=== PATIENT | female | born 1985 | race Two or more races ===

== ENCOUNTER 2022-03-11 12:55 | Emergency (ER) | payer MEDICAID, OTHER ==
[~2022-03-11] VITALS: Ht 162.6 cm; Wt 68.0 kg
[2022-03-11 15:00] LABS: BASOPHILS % (AUTO) 0.3 % (0.0-2.0); EOSINOPHILS % (AUTO) 0.4 % (0.0-6.0); HEMATOCRIT 38 % (33-45); HEMOGLOBIN 12.3 g/dL (11.5-14.8); LYMPHOCYTES # (AUTO) 1.4 K/uL (0.8-4.8); LYMPHOCYTES % (AUTO) 14.3 % (20.0-44.0); MEAN CORPUSCULAR HGB CONC 33 g/dl (31.0-36.0); MEAN CORPUSCULAR VOLUME 85 fL (82-100); MONOCYTES # (AUTO) 0.7 K/uL (0.1-1.30); MONOCYTES % (AUTO) 7.4 % (2.0-12.0); NEUTROPHILS # (AUTO) 7.6 K/uL (1.8-8.9); NEUTROPHILS % (AUTO) 77.6 % (43.0-81.0); PLATELET COUNT (AUTO) 241 K/uL (150-450); RED BLOOD CELL COUNT(AUTO) 4.44 MIL/uL (4.0-5.2); WHITE BLOOD COUNT (AUTO) 9.8 K/uL (4.3-11.0)
[2022-03-11] MEDS ORDERED: VANCOMYCIN 1 GM in IV D5W 250 ML IV ONE (15:00)
[2022-03-11] MEDS ORDERED: CEFAZOLIN 1 GM in IV D5W 50 ML IV ONE (15:00)
--- NOTE | 2022-03-11 15:20 | NUR ---
C/O SWELLING (CELLULITIS) OF THE RIGHT FOOT
--- NOTE | 2022-03-11 15:30 | NUR ---
ESTABLISHED IV LINE RIGHT AC 20G BLOOD SAMPLE OBTAINED BY TECH SENT TO LAB
[2022-03-11 15:31] LABS: ALBUMIN 3.5 g/dL (3.4-5.0); BILIRUBIN,DIRECT 0.1 mg/dL (0.0-0.2); BILIRUBIN,TOTAL 0.4 mg/dL (0.2-1.0); CALCIUM, SERUM 8.8 mg/dL (8.5-10.1); CREATININE 0.9 mg/dL (0.6-1.3); POTASSIUM 4.2 mmol/L (3.5-5.1); TOTAL PROTEIN, SERUM 7.1 g/dL (6.4-8.2)
--- NOTE | 2022-03-11 15:32 | NUR ---
PANEL ON-CALL PAGED
--- NOTE | 2022-03-11 16:43 | NUR ---
OCTAVIO RECINOS OF [facility] CALLED. MOYA WILL COVER AFTER 1700 PT ACCEPTED TO [facility] UNDER [address] [facility] REQUESTING CLINICALS FAXED TO [phone] AND TO PRE-ACCESS NURSE [phone] [facility] WILL TRANSPORT.
--- NOTE | 2022-03-11 17:49 | NUR ---
PT ACCEPTED AT [facility] [facility] ROOM: MED-SURG 2244 # FOR REPORT: [phone] SO TO ARRANGE TRANSPORT.
--- NOTE | 2022-03-11 17:57 | NUR ---
PER TRENT MOYA WILL CALL US WITH A ROOM #. TRANSPORT IS SET UP WITH [facility]. ETA 10:30PM PER FLORENTINO [phone]
--- NOTE | 2022-03-11 18:25 | NUR ---
REPORT GIVEN TO JOSE OF [facility].
[2022-03-11 20:14] VITALS: BP 115/64
--- NOTE | 2022-03-11 23:16 | NUR ---
[facility] CALLED FOR BLS GOING TO [facility] ETA RIGHT NOW
--- NOTE | 2022-03-11 23:19 | NUR ---
[facility] CALLED TO CANCEL DUE TO SOONER QUARTER INSPECTOR FROM [facility]
--- NOTE | 2022-03-11 23:36 | NUR ---
PT PICKED UP BY [facility] FOR TRANSPORT TO [facility] IN STABLE CONDITION
== END 2022-03-11 23:39 | disposition short-term general hospital (02) ==
LOC: ER 13:43
DX: L03.115 Cellulitis of right lower limb (principal); Z20.822 Contact with and (suspected) exposure to COVID-19; Z88.0 Allergy status to penicillin
CPT/HCPCS: 99284; 96365; 93971; 87426; 85025; 80048; 80076; 36415; 87081; 84702; J3370; J7060; C9803; J0690